=== PATIENT | female | born 2000 | race African-American/Black ===

== ENCOUNTER 2021-02-28 16:52 | Emergency (ER) | payer SELFPAY ==
[2021-02-28] MEDS ORDERED: Morphine 4 MG/ML VIAL ONE (17:28)
== END 2021-02-28 20:59 | disposition home or self-care (01) ==
LOC: ERS 16:52
DX: R09.89 Other specified symptoms and signs involving the circulatory and respiratory systems (principal); J45.909 Unspecified asthma, uncomplicated
CPT/HCPCS: 70360; 70490; 71046; 71250; 74018; 74176; 96374; J2270

== ENCOUNTER 2021-09-03 05:10 | Emergency (ER) | payer OTHER ==
[2021-09-03] MEDS ORDERED: Ibuprofen 200 MG TAB ONE (05:35)
[2021-09-03] MEDS ORDERED: Lidocaine Viscous Sol 2% 15 ml UD Cup ONE (05:47)
== END 2021-09-03 06:39 | disposition home or self-care (01) ==
LOC: ERS 05:10
DX: J02.0 Streptococcal pharyngitis (principal); J45.909 Unspecified asthma, uncomplicated; Z87.19 Personal history of other diseases of the digestive system
CPT/HCPCS: 99282

== ENCOUNTER 2021-11-05 19:57 | Emergency (ER) | payer OTHER ==
[2021-11-05] MEDS ORDERED: Albuterol 200 PUFF (6.7GM INHALER) ONE (20:52)
[2021-11-05] MEDS ORDERED: Dexamethasone 10 MG/ML VIAL ONE (20:52)
== END 2021-11-05 21:22 | disposition home or self-care (01) ==
LOC: ERS 19:57
DX: J45.20 Mild intermittent asthma, uncomplicated (principal)
CPT/HCPCS: 71045; 93005; J1100